=== PATIENT | female | born 1990 | race Caucasian/White ===

== ENCOUNTER 2016-10-25 14:19 | Emergency (ER) | payer OTHER ==
[~2016-10-25] VITALS: Ht 157.5 cm; Wt 127.3 kg
[~2016-10-25 14:19] MED LIST: ETON68IM3 SQ; SULF1TAB7 PO
[2016-10-25 14:27] VITALS: BP 149/109; PULSE 92; RESP 20; O2SAT 94
--- NOTE | 2016-10-25 15:48 | ED.REPORT ---
HPI-Rash / Abscess Date of Service Oct 25, 2016 ED Provider: Dr. Elena Pt is a 26 y/o female presenting to the ED due to possible abscess inframammary fold left breast onset 3 days ago. The pt was picking at a small blister 3 days ago and today she was able to discharge some purulent fluid and has noticed that it has become somewhat inflamed and mildly painful. She has no other complaints today and denies fever, chills, N/V/D, abdominal pain. Nursing Notes Stated Complaint: ABSCESS CHEST AREA Chief Complaint: Skin Rash/Abscess Nursing Notes Reviewed: Yes Allergies: Coded Allergies: No Known Allergies (Verified Allergy, Unknown, 08/09/16) Scheduled Etonogestrel (Nexplanon) 68 Mg Implant 68 MG SQ UD Sulfamethoxazole/Trimeth 800-160 mg (Bactrim DS) 1 Each Tablet 1 TABLET PO BID Sulfamethoxazole/Trimeth 800-160 mg (Bactrim DS) 1 Each Tablet 1 TABLET PO BID General Time Seen by MD: 15:48 Chief Complaint Abscess Hx Obtained From: Patient Arrived By: Walk-in Onset Occurred: 3 days ago Symptom Duration: Since onset Location: : Chest (abscess) Quality: Painful Severity: Current: Mild Severity: Maximum: Mild Past Medical History Past Medical History Reports: Morbid Obesity Past Surgical History None reported Smoking History Never Smoker Social History Alcohol Use: "Social" Other Social History: Local resident Ambulatory Status Independent Review of Systems Constitutional: Denies: Chills, Fever GI: Denies: Abdominal pain, Diarrhea, Nausea, Vomiting Skin: Reports Rash Complete sys rev & neg: except as marked. Physical Exam Initial Vital Signs Vital Signs (First) Date Time Temp Pulse Resp B/P Pulse Ox O2 Delivery O2 Flow Rate FiO2 10/25/16 14:27 36.7 92 20 149/109 94 Room Air Initial VS: Reviewed Head / Eyes: Atraumatic, Normocephalic, PERRL ENT: Mucous membranes moist, Conjunctiva normal, No scleral icterus Neck: Supple, Full range of motion Respiratory: No respiratory distress Cardiovascular: Intact distal pulses Abdomen / GI: Soft, Non-tender Extremities: Vascular intact, Neuro intact, No swelling, No tenderness Neurologic: Alert, Oriented, Nonfocal Psychiatric: Mood/affect normal, Behavior normal, Normal thought content General/Constitutional: Awake, Alert, No acute distress, Well appearing, Cooperative, Not toxic appearing Appearance / Presentation: Positive: Obese Skin: Warm, Dry Abscess Notes: Small pinpoint abscess on the medial aspect of the inframammary fold US shows superficial 1x2cm abscess Procedures Incision & Drainage Abscess Time: 15:57 Procedure Performed by: ED physician Consent / Setup / Site Prep: Consent from patient, Time-out performed, Hand hygiene observed, Stand sterile technique Location of Abscess: See PEx Skin Preparation Agent: Shurclens Local Anesthesia: Lidocaine 1% Incised Abscess with Scalpel: #11 Pus Drained: Small, Purulent discharge Irrigation: Copious Post-Procedure / Complications: Packing placed, Dressing applied, No complications, Condition improved, Tolerated procedure well, Patient stable Re-Eval/Medical Decision Source of Hx: Old records Re-Evaluation/Progress : Time of Eval: 16:00 Re-Evaluation/Progress Note: I&D performed with no complications. Counseled Regarding: Diagnosis, Need for follow-up, When/why to return to ED Discharge & Departure Impression: Primary Impression: Abscess Disposition: Home Discharge Condition All VS Reviewed: Yes Condition: Stable Patient Instructions: Abscess (ED) Additional Instructions: Your small abscess was incised and drained today. Hot packs 4-5 times daily for 10 minutes Removed the packing tomorrow and wash it daily with hot water and soap. Take the full 5 day course of antibiotics, your first dose will be today. Return to the emergency department if you develop fever, chills, vomiting, diarrhea, spreading rash, or other concerning symptoms. Follow up with your primary doctor as regularly scheduled. Referrals: Estelita Velazquez MD (PCP) Gertrudeibdev Attestation Portions of this note were transcribed by Eleazar Chatterjee. IDr. Elena personally performed the history, physical exam and medical decision-making; I reviewed and confirmed the accuracy of the information in the transcribed note. Signed by Christiano Whiteside, 10/25/16 - 2122 copies to: Estelita Velazquez MD, Kirk H MD Oct 25, 2016 15:48 ELEAZAR CHATTERJEE Oct 25, 2016 16:02
[2016-10-25] MEDS ORDERED: SULF1TAB7 PO (16:03)
== END 2016-10-25 16:18 | disposition home or self-care (01) ==
LOC: SED 14:19
DX: L02.213 Cutaneous abscess of chest wall (principal); E66.01 Morbid (severe) obesity due to excess calories

== ENCOUNTER 2017-05-27 10:31 | Emergency (ER) | payer OTHER ==
[~2017-05-27] VITALS: Ht 157.5 cm; Wt 127.3 kg
[2017-05-27 10:34] VITALS: BP 142/94; PULSE 104; RESP 22; O2SAT 98
--- NOTE | 2017-05-27 10:45 | ED.REPORT ---
HPI- Female Date of Service May 27, 2017 ED Provider: Diane Lombardo MD Pt is a 27 y/o female with a history of abscesses who presents to the ED c/o a possible cyst to her labia onset one week. She states that she the abscess drained once two days ago, but hasn't drained since. She describes her discharge as foul-smelling bloody purulence. She denies nausea, vomiting, diarrhea, fevers, chills, bladder or bowel incontinence, or any other symptoms. Nursing Notes Stated Complaint: POSSIBLE CYST INNER LABIA Chief Complaint: Female Abdominal Pain Nursing Notes Reviewed: Yes Allergies: Coded Allergies: No Known Allergies (Verified Allergy, Unknown, 05/27/17) Scheduled Clindamycin (Clindamycin) 300 Mg Capsule 300 MG PO TID Etonogestrel (Nexplanon) 68 Mg Implant 68 MG SQ UD Sulfamethoxazole/Trimeth 800-160 mg (Bactrim DS) 1 Each Tablet 1 TABLET PO BID Sulfamethoxazole/Trimeth 800-160 mg (Bactrim DS) 1 Each Tablet 1 TABLET PO BID Scheduled PRN oxyCODONE-Acetaminophen 5-325 mg (oxyCODONE-Acetaminophen 5-325 mg) 1 Each Tablet 1 TAB PO Q4H PRN PRN For Pain General Time Seen by MD: 10:44 Chief Complaint Other (Possible cyst on labia) Hx Obtained From: Patient Arrived By: Walk-in Sudden in Onset?: No Onset Occurred: 1 week ago Quality: Painful Severity: Current: Moderate Severity: Maximum: Severe Recent Healthcare: No recent doctor visit, No recent hospitalization Similar Sx Previous: No Past Medical History Past Medical History Abscesses Chronic back pain Past Surgical History None reported Smoking History Never Smoker Social History Alcohol Use: "Social" Other Social History: Local resident Ambulatory Status Independent Review of Systems Possible cyst on labia Cyst discharge was foul smelling bloody purulence Constitutional: Denies: Chills, Fever GI: Denies: Diarrhea, Nausea, Vomiting Female: Denies: Incontinence Complete sys rev & neg: except as marked. Physical Exam Initial Vital Signs Vital Signs (First) Date Time Temp Pulse Resp B/P Pulse Ox O2 Delivery O2 Flow Rate FiO2 05/27/17 10:34 36.9 104 22 142/94 98 Room Air Initial VS: Reviewed Head / Eyes: Atraumatic, Normocephalic Neck: Supple, Full range of motion Respiratory: No respiratory distress Abdomen / GI: Soft, Non-tender Extremities: Vascular intact, Neuro intact, No swelling, No tenderness Skin: Warm, Dry, No cyanosis Neurologic: Alert, Oriented, Nonfocal Psychiatric: Mood/affect normal, Behavior normal, Normal thought content Female Genitourinary: Fiscal Technician present, No bleeding No inguinal adenopathy Bilateral intertrigo yeast Isolated swelling in R labia minora around bartholin duct w/o abscess or cyst (appears like it drained) General/Constitutional: Awake, Alert Re-Eval/Medical Decision Source of Hx: Old records Re-Evaluation/Progress : Time of Eval: 11:30 Re-Evaluation/Progress Note: Discussed no need for I&D procedure, and plan for discharge. Patient understands and agrees with plan. F/U instructions and RTER warnings given. All questions addressed at this time. Counseled Regarding: Diagnosis, Lab results, Need for follow-up, When/why to return to ED Discharge & Departure Impression: Primary Impression: Bartholin's duct cyst Additional Impression: Infection of labia Disposition: Home Discharge Condition All VS Reviewed: Yes Condition: Stable Patient Instructions: Bartholin Cyst (ED) Additional Instructions: Thank you for entrusting us with your care today. It looks like you HAD a bartholin cyst that drained itself but is now looking like you have developed an infectoin. It does not need to be drained again today. You will benefit from antibiotics, clindamycin 300mg 3/day for 7 days. It is OK to soak the area (sitting in a warm bath is a great idea) Take 400 mg of ibuprofen every 6 hours with 1/2-to-1 tablet of Percocet for pain. Ice may help with the swelling. Call your [facility]SE[facility] today for an appointment next week for a recheck. Please return to the emergency department if you develop any new or worsening symptoms. Dr. Sonja Mahoney, [facility]HOUSEMAN Referrals: Estelita Velazquez MD (PCP) Sonja Mahoney MD Scribe Attestation Portions of this note were transcribed by Lelo Mckinnon. I, Dr. Lombardo, personally performed the history, physical exam and medical decision-making; I reviewed and confirmed the accuracy of the information in the transcribed note. Signed by: Christiano Bloom, 05/27/17 copies to: Sonja Mahoney MD; Estelita Velazquez MD, Shawna L MD May 27, 2017 10:45 Lelo Mckinnon May 27, 2017 11:41 Lelo Mckinnon May 27, 2017 11:41
[2017-05-27] MEDS ORDERED: oxyCODONE-Acetamin 5-325 mg Tablet PO ONE ×2 (11:19→11:30)
[2017-05-27 11:55] VITALS: BP 141/101; PULSE 101
[2017-05-27] MEDS ORDERED: OXYC1TAB24 PO (12:20)
[2017-05-27] MEDS ORDERED: CLIN-78 PO (12:20)
[2017-05-27 12:39] VITALS: BP 141/101; PULSE 101; RESP 22; O2SAT 98
== END 2017-05-27 12:39 | disposition home or self-care (01) ==
LOC: SED 10:31
DX: N75.0 Cyst of Bartholin's gland (principal); N76.2 Acute vulvitis

== ENCOUNTER 2017-05-28 04:14 | Emergency (ER) | payer OTHER ==
[~2017-05-28 04:14] MED LIST changes: +CLIN-78 PO; +OXYC1TAB24 PO
[2017-05-28 04:16] VITALS: BP 137/92; PULSE 86; RESP 16; O2SAT 95
--- NOTE | 2017-05-28 04:50 | ED.REPORT ---
HPI- Female Date of Service May 28, 2017 ED Provider: Dr. Blount Pt is a 27 year old female with a hx of Bartholin cyst presenting to the ED via EMS complaining of increased pelvic pain. She was seen here yesterday for the same and had the cyst drained overnight but reports that when she urinated this morning the pain was increased and she had "a lot" of bleeding. Denies fever, chills, nausea, vomiting, SOB or wheezing. She took 1 Percocet when medics arrived. Nursing Notes Stated Complaint: VAGINAL BLEEDING Chief Complaint: Skin Rash/Abscess Nursing Notes Reviewed: Yes Allergies: Coded Allergies: No Known Allergies (Verified Allergy, Unknown, 05/27/17) Scheduled Clindamycin (Clindamycin) 300 Mg Capsule 300 MG PO TID Etonogestrel (Nexplanon) 68 Mg Implant 68 MG SQ UD Sulfamethoxazole/Trimeth 800-160 mg (Bactrim DS) 1 Each Tablet 1 TABLET PO BID Sulfamethoxazole/Trimeth 800-160 mg (Bactrim DS) 1 Each Tablet 1 TABLET PO BID Scheduled PRN oxyCODONE-Acetaminophen 5-325 mg (oxyCODONE-Acetaminophen 5-325 mg) 1 Each Tablet 1 TAB PO Q4H PRN PRN For Pain General Time Seen by MD: 04:50 Chief Complaint Vaginal bleeding... Hx Obtained From: Patient Arrived By: Walk-in Sudden in Onset?: Yes Onset Occurred: Just prior to arrival Symptom Duration: Since onset Quality: Painful Severity: Current: Moderate Severity: Maximum: Severe Recent Healthcare: No recent hospitalization, Recent doctor visit Similar Sx Previous: Yes Past Medical History Past Medical History Abscesses Chronic back pain Past Surgical History None reported Smoking History Never Smoker Social History Alcohol Use: "Social" Other Social History: Local resident Ambulatory Status Independent Review of Systems Constitutional: Denies: Chills, Fever GI: Denies: Nausea, Vomiting Female: Reports: Vaginal bleeding - abnl Skin: Reports Rash Complete sys rev & neg: except as marked. Respiratory: Denies: Shortness of breath, Wheezing Physical Exam Initial Vital Signs Vital Signs (First) Date Time Temp Pulse Resp B/P Pulse Ox O2 Delivery O2 Flow Rate FiO2 05/28/17 04:16 36.7 86 16 137/92 95 Room Air Initial VS: Reviewed General/Constitutional: Well-developed Head / Eyes: Atraumatic, Normocephalic, PERRL ENT: Mucous membranes moist, Conjunctiva normal, No scleral icterus Respiratory: Breath sounds normal, Clear to auscultation, No respiratory distress Abdomen / GI: No distention Extremities: Vascular intact, Neuro intact, No swelling, No tenderness Skin: Warm, Dry, No cyanosis Neurologic: Alert, Oriented, Nonfocal Psychiatric: Mood/affect normal, Behavior normal, Normal thought content Female Genitourinary: Engineering Technician Parking present, Atraumatic Labial cyst in the labium menus on the right. Mildly bloody purulent drainage. Easily controlled with pressure. General/Constitutional: Awake, Alert Distress / Hydration: Positive: Distress moderate Appearance / Presentation: Positive: Obese, morbidly Re-Eval/Medical Decision Med Decision/Clinical Course Exam today reveals this is not really a Bartholin's cyst with a labial cyst. It is draining bloody serosanguineous material through a small aperture. There is no accumulation and it is draining freely. Pressure applied with good hemostasis. Home for hot soaks continued antibiotics and pain meds. Re-Evaluation/Progress : Time of Eval: 05:18 Patient Status: Condition improved Re-Evaluation/Progress Note: Discussed plan for discharge. Pt understands and agrees. Counseled Regarding: Diagnosis, Lab results, Need for follow-up, When/why to return to ED Discharge & Departure Impression: Primary Impression: Infection of labia Additional Impressions: Labial cyst Abscess Disposition: Home Discharge Condition All VS Reviewed: Yes Condition: Improved Patient Instructions: Abscess (ED) Additional Instructions: Your cyst continues to drain. You can speed the process of healing by taking a sitdown hot baths three times daily for 15-20 minutes. If you have any bleeding, apply some direct pressure for 5-10 minutes with gauze to control it. Continue your antibiotics. Follow-up with your doctor in the office. Continue your current pain meds. Referrals: Estelita Velazquez MD (PCP) Scribe Attestation Portions of this note were transcribed by Pino Gentile. I, Dr. Blount personally performed the history, physical exam and medical decision-making; I reviewed and confirmed the accuracy of the information in the transcribed note. Signed by: Christiano Ortiz, 05/28/2017. copies to: Estelita Velazquez MD, Christopher W MD May 28, 2017 04:50 PINO GENTILE May 28, 2017 05:13
[2017-05-28 05:48] VITALS: BP 135/89; PULSE 92; RESP 16; O2SAT 94
== END 2017-05-28 05:42 | disposition home or self-care (01) ==
LOC: SED 04:14
DX: N76.2 Acute vulvitis (principal); N76.4 Abscess of vulva; Z87.42 Personal history of other diseases of the female genital tract